=== PATIENT | male | born 1995 | race Caucasian/White ===

== ENCOUNTER 2019-05-19 21:19 | Emergency (ER) | payer OTHER ==
[~2019-05-19] VITALS: Ht 160 cm; Wt 43.1 kg
[2019-05-19 22:44] LABS: INFLUENZA A ANTIGEN Negative (Negative); INFLUENZA B ANTIGEN Negative (Negative)
[2019-05-19] MEDS ORDERED: TYLENOL WITH CO1 TA1 PO (22:54)
[2019-05-19] MEDS ORDERED: LIDOCAINE VISC100 ML SWISH&SPIT (22:54)
[2019-05-19 23:18] VITALS: BP 114/73
== END 2019-05-19 23:18 | disposition home or self-care (01) ==
LOC: M.ERS 21:19
PROVIDERS: Physician Assistant
DX: J06.9 Acute upper respiratory infection, unspecified (principal); K13.79 Other lesions of oral mucosa

== ENCOUNTER 2020-08-04 09:59 | Emergency (ER) | payer OTHER ==
[~2020-08-04] VITALS: Ht 160 cm; Wt 43.1 kg
[~2020-08-04 09:59] MED LIST: LIDOCAINE VISC100 ML SWISH&SPIT; TYLENOL WITH CO1 TA1 PO
[2020-08-04 10:38] LABS: ABSOLUTE BASOPHILS 0.1 thou/uL (0.0-0.2); ABSOLUTE EOSINOPHILS 0.2 thou/uL (0.0-0.7); ABSOLUTE LYMPHOCYTES 2.7 thou/uL (0.8-5.3); ABSOLUTE MONOCYTES 0.5 thou/uL (0.0-1.2); ABSOLUTE NEUTROPHILS 5.3 thou/uL (1.6-8.1); BASOPHILS 0.6 %; EOSINOPHILS 1.9 %; HEMATOCRIT 41.9 % (42.0-52.0); HEMOGLOBIN 14.5 gm/dL (14.0-18.0); LYMPHOCYTES 30.8 %; MCH 29.9 pg (26.0-34.0); MCHC 34.5 g/dL (28.0-37.0); MCV 86.6 fL (80.0-100.0); MONOCYTES 6.2 %; MPV 6.9 fl. (7.2-11.1); NUCLEATED RBCS 0 /100WBC; PLATELET COUNT* 300 thou/uL (150-400); POLYS 60.5 %; RBC 4.83 mil/uL (4.50-6.00); RDW-CV 13.4 % (10.5-14.5); WBC 8.7 thou/uL (4.0-11.0)
[2020-08-04 10:48] LABS: CALCIUM 8.8 mg/dL (8.5-10.1)
[2020-08-04 12:43] LABS: URINE BLOOD 3+ (Negative); URINE CLARITY SL CLOUDY; URINE COLOR DARK YELLOW; URINE GLUCOSE-RANDOM NEGATIVE (Negative); URINE KETONES TRACE (Negative); URINE LEUKOCYTES-REFLEX NEGATIVE (Negative); URINE NITRITE-REFLEX NEGATIVE (Negative); URINE PROTEIN 1+ (Negative); URINE SPECIFIC GRAVITY 1.025 (1.005-1.030)
[2020-08-04 12:46] LABS: ICTOTEST (BILI CONFIRMATORY) Negative (Negative); URINE BILIRUBIN 1+ (Negative)
[2020-08-04 12:54] LABS: CASTS None Seen /LPF (None Seen); CRYSTALS None Seen /LPF (None Seen); MUCUS 0-3 Light strn/LPF (None Seen); SQUAMOUS 0-3 Few /LPF (0-3); URINE RBC >20 Many /HPF (0-2); URINE WBC-REFLEX 0-5 Rare /HPF (0-5)
[2020-08-04] MEDS ORDERED: FLOMAX0.4 MG PO (13:19)
[2020-08-04] MEDS ORDERED: ONDANSETRON HCL4 M2 PO (13:19)
[2020-08-04] MEDS ORDERED: HYDROCODON-ACE1 EAC7 PO (13:19)
[2020-08-04 13:30] VITALS: BP 120/60
== END 2020-08-04 13:35 | disposition home or self-care (01) ==
LOC: M.ERS 09:59
PROVIDERS: Nurse Practitioner
DX: R10.84 Generalized abdominal pain (principal); R11.0 Nausea